=== PATIENT | female | born 1955 | race Two or more races ===

== ENCOUNTER → 2018-11-23 | Outpatient (CLI) | payer OTHER | END | disposition home or self-care (01) | LOC: NUCLEAR 09:24 | DX: I11.9 Hypertensive heart disease without heart failure (principal); M71.122 Other infective bursitis, left elbow; M17.2 Bilateral post-traumatic osteoarthritis of knee ==

== ENCOUNTER 2022-09-08 09:10 | Outpatient (CLI) | payer OTHER | END 2022-09-08 09:13 | disposition home or self-care (01) | LOC: RAD 09:10 | DX: I11.9 Hypertensive heart disease without heart failure (principal) ==

== ENCOUNTER 2023-02-08 08:53 | Outpatient (CLI) | payer OTHER | END 2023-02-08 08:56 | disposition home or self-care (01) | LOC: MAMO-SONO 08:53 | PROVIDERS: ATTEND Internal Medicine Endocrinology, Diabetes & Metabolism | DX: Z12.31 Encounter for screening mammogram for malignant neoplasm of breast (principal); R94.5 Abnormal results of liver function studies; K76.0 Fatty (change of) liver, not elsewhere classified ==

== ENCOUNTER 2023-02-10 12:55 | Outpatient (CLI) | payer OTHER | END 2023-02-10 12:57 | disposition home or self-care (01) | LOC: NUCLEAR 12:55 | PROVIDERS: ATTEND Internal Medicine Endocrinology, Diabetes & Metabolism | DX: Z13.820 Encounter for screening for osteoporosis (principal); M85.89 Other specified disorders of bone density and structure, multiple sites ==

== ENCOUNTER → 2023-08-24 08:27 | Outpatient (CLI) | payer OTHER | END | disposition home or self-care (01) | LOC: LAB 08:27 | PROVIDERS: ATTEND Internal Medicine Gastroenterology | DX: J20.9 Acute bronchitis, unspecified (principal); R05.9 Cough, unspecified; R06.02 Shortness of breath ==

== ENCOUNTER 2024-08-14 13:04 | Emergency (ER) | payer OTHER ==
[~2024-08-14] VITALS: Ht 160 cm; Wt 82.6 kg
[2024-08-14] MEDS ORDERED: IRBESARTAN-HCT1 EAC1 PO (13:46)
[2024-08-14] MEDS ORDERED: ONDANSETRON HCL 2 MG/ML VIAL IV ONE (14:30)
[2024-08-14] MEDS ORDERED: 0.9 % SODIUM CHLORIDE 500 ML IV ONE (14:30)
[2024-08-14] MEDS ORDERED: FAMOTIDINE/PF 20 MG/2 ML VIAL IV ONE (14:30)
[2024-08-14 14:56] LABS: HEMATOCRIT 34.2 % (36.0-45.00); HEMOGLOBIN 11.8 g/dL (12.0-15.00); MEAN CELL VOLUME 86.1 fL (80.00-100.00); MEAN CORPUSCULAR HEMOGLOBIN 29.8 pg (27.00-32.0); MEAN CORPUSCULAR HGB CONC 34.7 g/dl (32.0-36.0); PLATELET COUNT 271 K/uL (150-450); RED BLOOD COUNT 3.97 M/uL (4.00-6.00); RED CELL DISTRIBUTION WIDTH 13.7 % (11.5-14.5)
[2024-08-14 15:21] LABS: ALBUMIN 3.5 gm/dL (3.4-5.0); BILIRUBIN TOTAL 0.61 mg/dL (0.3-1.2); CALCIUM 9.5 mg/dL (8.5-10.1); CREATININE SERUM 1.11 mg/dL (0.55-1.02); GFR 49.03; GLOBULINA 4.5 G/DL (2.4-3.5); POTASSIUM 3.45 mEq/L (3.5-5.1)
[2024-08-14 16:12] LABS: PH,URINE 5.5 (5.0-8.0); URINE APPEARANCE Cloudy; URINE BILIRRUBIN Negative (NEGATIVE); URINE BLOOD Small; URINE COLOR Yellow; URINE GLUCOSE Negative (NEGATIVE); URINE KETONE Negative (NEGATIVE); URINE LEUKOCYTE Moderate; URINE NITRATE Negative; URINE PROTEIN Negative (NEGATIVE); URINE UROBILINOGEN 0.2 E.U./dl
[2024-08-14 16:15] LABS: URINE BACTERIA 951.2 uL (0.0-1933); URINE CAST 2.13 uL (0.0-1.40); URINE EPITHELIAL CELLS 58.7 uL (0.0-38.8); URINE RBC 75.2 uL (0.0-20.8); URINE WBC 89.8 uL (0.0-23.2)
[2024-08-14 16:32] LABS: URINE CRYSTALS FEW /HPF; URINE MUCUS MODERATE
[2024-08-14] MEDS ORDERED: PIPERACILLIN/TAZOBACTAM SODIUM 3.375 GM VIAL IV ONE (17:15)
[2024-08-14] MEDS ORDERED: CIPRO500 MG PO (17:26)
[2024-08-14] MEDS ORDERED: PEPCID AC20 MG PO (17:26)
[2024-08-14] MEDS ORDERED: METRONIDAZOLE500 MG PO (17:26)
[2024-08-14] MEDS ORDERED: INTESTINEX680 M1 PO (17:26)
== END 2024-08-14 19:39 | disposition home or self-care (01) ==
LOC: ER 13:06
PROVIDERS: Nurse Practitioner Family
DX: K57.32 Diverticulitis of large intestine without perforation or abscess without bleeding (principal); R19.7 Diarrhea, unspecified; R10.32 Left lower quadrant pain; I10 Essential (primary) hypertension; Z20.822 Contact with and (suspected) exposure to COVID-19; N20.0 Calculus of kidney
CPT/HCPCS: 36415; 74176; 96365; 96366; J2405; J2543; J3490; J7030

== ENCOUNTER 2025-02-25 12:07 | Outpatient (CLI) | payer OTHER ==
[~2025-02-25 12:07] MED LIST: CIPRO500 MG PO; INTESTINEX680 M1 PO; IRBESARTAN-HCT1 EAC1 PO; METRONIDAZOLE500 MG PO; PEPCID AC20 MG PO
== END 2025-02-25 12:11 | disposition home or self-care (01) ==
LOC: NUCLEAR 12:07
PROVIDERS: ATTEND Specialist
DX: M81.0 Age-related osteoporosis without current pathological fracture (principal)

== ENCOUNTER 2025-03-07 12:56 | Outpatient (CLI) | payer OTHER | END 2025-03-07 13:01 | disposition home or self-care (01) | LOC: MAMO-SONO 12:56 | PROVIDERS: ATTEND Specialist | DX: N60.11 Diffuse cystic mastopathy of right breast (principal); N60.12 Diffuse cystic mastopathy of left breast; Z12.31 Encounter for screening mammogram for malignant neoplasm of breast ==